=== PATIENT | female | born 1955 | race Caucasian/White ===

== ENCOUNTER 2018-03-03 06:39 | Day surgery (SDC) | payer OTHER ==
[~2018-03-03] VITALS: Ht 167.6 cm; Wt 99.1 kg
[~2018-03-03 06:39] MED LIST: DULO60CA44 PO; SIMV-261 PO; SODIUM CHLORIDE 0.9% 1,000 ML IV ONE
[2018-03-03] MEDS ORDERED: ALBUTEROL SULFATE 2.5 MG/0.5 ML NEB SOLUTION NEB ONE (06:40)
[2018-03-03] MEDS ORDERED: BENZOCAINE 20% 50 MCG/SPRAY 57 GM TP ONE (06:40)
[2018-03-03] MEDS ORDERED: LIDOCAINE 2% 30 ML JELLY TP ONE (06:40)
[2018-03-03 07:44] LABS: GLUCOMETER DEV NAME(LOC) SDS 5; GLUCOSE,POINT OF CARE 132 MG/DL (70-110)
[2018-03-03] MEDS ORDERED: METF-960 PO (07:47)
[2018-03-03] MEDS ORDERED: METO25 PO (07:47)
[2018-03-03] MEDS ORDERED: BACL10TA PO (07:47)
[2018-03-03] MEDS ORDERED: LOSA50TA25 PO (07:47)
[2018-03-03] MEDS ORDERED: GABA-531 PO (07:47)
[2018-03-03] MEDS ORDERED: MIDAZOLAM HCL 2 MG/2 ML VIAL ONE (08:03)
[2018-03-03] MEDS ORDERED: FentaNYL CITRATE-PF 100 MCG/2 ML VIAL ONE (08:03)
[2018-03-03] MEDS ORDERED: MethylPREDNISolone SOD SUCC 125 MG/2 ML VIAL IVP ONE (08:15)
[2018-03-03] MEDS ORDERED: MethylPREDNISolone SOD SUCC 125 MG/2 ML VIAL ONE (08:34)
[2018-03-03] MEDS ORDERED: OXYGEN THERAPY IH SCH (20:00)
== END 2018-03-03 10:10 | disposition home or self-care (01) ==
LOC: SURGERY 06:39
PROVIDERS: ATTEND Internal Medicine Critical Care Medicine
DX: J38.4 Edema of larynx (principal); B37.0 Candidal stomatitis; J84.111 Idiopathic interstitial pneumonia, not otherwise specified; F17.210 Nicotine dependence, cigarettes, uncomplicated; J44.9 Chronic obstructive pulmonary disease, unspecified; I10 Essential (primary) hypertension; E11.9 Type 2 diabetes mellitus without complications; E78.00 Pure hypercholesterolemia, unspecified; F12.21 Cannabis dependence, in remission; F15.21 Other stimulant dependence, in remission; M19.90 Unspecified osteoarthritis, unspecified site; Z88.1 Allergy status to other antibiotic agents; Z88.5 Allergy status to narcotic agent; Z90.49 Acquired absence of other specified parts of digestive tract; Z90.710 Acquired absence of both cervix and uterus; Z87.01 Personal history of pneumonia (recurrent); Z86.19 Personal history of other infectious and parasitic diseases; Z79.84 Long term (current) use of oral hypoglycemic drugs; Z88.6 Allergy status to analgesic agent; Z79.891 Long term (current) use of opiate analgesic; Z98.890 Other specified postprocedural states; Z79.899 Other long term (current) drug therapy
CPT/HCPCS: 31623; 31624; 71045; 82962; 87015; 87070; 87205; 87206; 87220; J2250; J2930; J3010; J7030; 88108; 88312

== ENCOUNTER 2022-12-24 06:50 | Day surgery (SDC) | payer OTHER ==
[~2022-12-24] VITALS: Ht 165.1 cm; Wt 90.9 kg
[~2022-12-24 06:50] MED LIST changes: +BACL10TA PO; +DULO-113 PO; -DULO60CA44 PO; +GABA-1181 PO; +LOSA-382 PO; +METF-1211 PO; +METO25 PO; -SODIUM CHLORIDE 0.9% 1,000 ML IV ONE
[2022-12-24] MEDS ORDERED: SODIUM CHLORIDE 0.9% 1,000 ML IV ONE (07:00)
[2022-12-24] MEDS ORDERED: SODIUM CHLORIDE 0.9% 1,000 ML ONE (07:23)
[2022-12-24 07:57] LABS: GLUCOMETER DEV NAME(LOC) SDS.
[2022-12-24] MEDS ORDERED: FentaNYL CITRATE PF 100 MCG/2 ML VIAL ONE (08:09)
[2022-12-24] MEDS ORDERED: MIDAZOLAM HCL 2 MG/2 ML VIAL ONE (08:09)
[2022-12-24] MEDS ORDERED: MethylPREDNISolone SOD SUCC 125 MG/2 ML VIAL IVP ONE (09:45)
[2022-12-24] MEDS ORDERED: MethylPREDNISolone SOD SUCC 125 MG/2 ML VIAL ONE (10:07)
== END 2022-12-24 12:20 | disposition home or self-care (01) ==
LOC: SURGERY 06:50
PROVIDERS: ATTEND Internal Medicine Critical Care Medicine
DX: J38.4 Edema of larynx (principal); B37.0 Candidal stomatitis; Z79.899 Other long term (current) drug therapy; Z88.6 Allergy status to analgesic agent; Z88.8 Allergy status to other drugs, medicaments and biological substances; F17.210 Nicotine dependence, cigarettes, uncomplicated; Z98.890 Other specified postprocedural states; I10 Essential (primary) hypertension; Z90.49 Acquired absence of other specified parts of digestive tract; Z79.84 Long term (current) use of oral hypoglycemic drugs
CPT/HCPCS: 31623; 88112; 87206; 82962; 87101; 87220; 87070; 31624; 94640; 71045; 87015; J3010; J2250; J2930; J7030